=== PATIENT | female | born 1985 | race Caucasian/White ===

== ENCOUNTER → 2023-10-05 10:38 | Outpatient (REF) | payer OTHER, SELFPAY | LOC: HWRAD 10:38 | PROVIDERS: ATTENDING PHYSICIAN Family Medicine | DX: M25.511 Pain in right shoulder (principal) | CPT/HCPCS: 73030 ==

== ENCOUNTER 2024-10-25 20:36 | Emergency (ER) | payer OTHER, SELFPAY ==
[2024-10-25 20:38] VITALS: BP 145/105
[2024-10-25 21:08] VITALS: BP 148/98
[2024-10-25 21:09] VITALS: BMI 36.6
[2024-10-25] MEDS: TORADOL 15 MG IV (21:36)
[2024-10-25] MEDS: DECADRON 10 MG IV (21:36)
[2024-10-25 21:52] LABS: % Basophils 0.4 % (0-2); % Eosinophils 0.1 % (0-6); % Immature Granulocytes 0.4 % (0-0.5); % Lymphocytes 18.4 % (20.5-51.1); % Neutrophils 72.7 % (42.2-75.2); Absolute Monocytes 0.9 10^3/uL (0.1-0.6); Hematocrit 42.6 % (37.0-47.0); Hemoglobin 14.5 g/dL (12.0-16.0); Mean Corpuscular Volume 88.2 fL (81.0-99.0); Mean Platelet Volume 10.2 fL (7.4-10.4); Nucleated Red Blood Cells % 0 %; Platelet Count 221 10^3/uL (130-400); Red Blood Cell Count 4.83 10^6/uL (4.20-5.40); Red Cell Dist. Width 12.6 % (11.5-14.5)
[2024-10-25 22:00] VITALS: BP 138/95
[2024-10-25 22:04] LABS: HCG, Serum Qualitative Screen Negative
[2024-10-25 22:09] LABS: ALT (SGPT) 19 U/L (0-35); AST (SGOT) 21 U/L (14-36); Albumin 4.8 g/dl (3.5-5.0); Alkaline Phosphatase 77 U/L (38-126); Blood Urea Nitrogen 21 mg/dl (7-17); Calcium 9.8 mg/dl (8.4-10.2); Carbon Dioxide 25 mmol/L (22-30); Chloride 105 mmol/L (98-107); Estimated Creatinine Clearance 95 ml/min; Glucose 117 mg/dl (70-99); Potassium 3.8 mmol/L (3.5-5.1); Sodium 139 mmol/L (135-145); Total Bilirubin 0.8 mg/dl (0.2-1.3); Total Protein 8.4 g/dl (6.3-8.2); eGFR > 60.00
--- NOTE | 2024-10-25 22:45 | ED.GENMED ---
History of Present Illness
General
Chief Complaint: Cold/Flu/URI Symptoms
Time Seen by Provider: 10/25/24 21:07
History of Present Illness
History of Present Illness:
39-year-old female with no significant past medical history presents to the emergency department for evaluation of sore throat, myalgias, and nausea/vomiting for the past 2 days. Having difficulty swallowing. Feels that she is choking when she
tries to drink water. Has not taken any medications for symptom control. Feels as though her voice is becoming muffled
Past History
Past History
ED Past Medical History: Fibromyalgia and Other (RA); Negative Hypercholesterolemia or IDDM
ED Past Surgical History: Orthopedic
Social History
Tobacco: Non-smoker
Alcohol: None
Drug: None
Personal:
Living: with family
Employment: Employed
Family History
Family History: Diabetes and Hypertension
Review of Systems
Review of Systems
Allergies reviewed?: Yes
All Other Systems: ROS reviewed and negative except as documented in HPI and ROS
Phy Exam
Physical Exam
Physical Exam:
GEN: Well appearing, NAD, WDWN
HEENT: Oral mucosa moist, no scleral icterus. 2+ tonsillar hypertrophy with erythema and exudates bilaterally, uvula is midline, no evidence for peritonsillar abscess. Somewhat muffled phonation, no trismus
Cardiac: Regular rate
Lung: No respiratory distress, no tachypnea
MSK: No gross deformity or injuries
Skin: Good color, no pallor or jaundice, no rashes
Neuro: AO x3, moves all extremities freely
Psych: Calm, cooperative
Course
Orders/Labs/Results
Orders:
Orders
10/25/24 21:20
CT Neck With Iv Contrast Urgent
Comment:
Reason For Exam: dysphagia, odynophagia
Dexamethasone Sod Phosphate [Decadron] 10 mg IV NOW STA
Ketorolac [Toradol] 15 mg IV NOW STA
10/25/24 21:25
Test Result ONCE
10/25/24 21:33
Complete Blood Count/With Diff Urgent
Comprehensive Metabolic Panel Urgent
HCG, Serum Qualitative Screen Urgent
10/25/24 21:44
Rapid Strep Group A Urgent
JOSE E Source: Throat/Pharynx
Specimen Description:
Date Specimen was Collected: 10/25/24
Time Specimen was Collected: 21:35
10/25/24 22:49
Amoxicillin [Amoxil] 500 mg PO NOW STA
NSS 500mL Bolus over 30 minutes 0.9% Sodium Chloride 500 ml [Nss] 500 ml IV BOLUS
Abnormal Lab Results
10/25/24
21:33
WBC 11.0 H 10^3/uL
(4.8-10.8)
Absolute Neuts (auto) 8.0 H 10^3/uL
(1.4-6.5)
Absolute Monos (auto) 0.9 H 10^3/uL
(0.1-0.6)
Lymphocytes % 18.4 L %
(20.5-51.1)
BUN 21 H mg/dl
(7-17)
Glucose 117 H mg/dl
(70-99)
Total Protein 8.4 H g/dl
(6.3-8.2)
10/25/24 21:33
10/25/24 21:33
Vital Signs
Initial and Last Documented VS:
Initial Vital Signs
Temp Pulse Resp BP Pulse Ox
98.5 F 100 20 145/105 99
10/25/24 20:38 10/25/24 20:38 10/25/24 20:38 10/25/24 20:38 10/25/24 20:38
Last Documented Vital Signs
Temp Pulse Resp BP Pulse Ox
98.5 F 100 20 148/98 98
10/25/24 20:38 10/25/24 20:38 10/25/24 20:38 10/25/24 21:08 10/25/24 21:30
MDM/Problems Addressed
MDM/Problems Addressed:
Patient was sent for CT imaging given her muffled voice to rule out peritonsillar or retropharyngeal abscess, this was a reassuring study. Will treat for bacterial pharyngitis with amoxicillin, single dose of steroids given in the ED should be
satisfactory for inflammatory relief
*Critical Care Note
Total Time (30-74mins, 75-104mins- exclusive of procedures): Not Applicable
ED Attending Note
-
Portions of this chart may have been created with voice recognition software.� Occasional wrong word or��sound alike� substitutions may have occurred due to the inherent limitations of voice recognition software.
Discharge Plan
Departure
Patient Disposition: Home (Routine Discharge)
Date of Disposition: 10/25/24
Time of Disposition: 22:50
Patient with high blood pressure during this ER visit?: No
Discharge Problem:
Acute tonsillitis
Instructions: Sore throat in adults
Prescriptions:
New
amoxicillin 500 mg tablet
500 mg PO Q12H Qty: 19 0RF
No Action
vit-iron fum-folic ac 1 EACH tablet
1 tab PO DAILY
ibuprofen 600 MG tablet
600 mg PO TID PRN (Reason: pain) Qty: 20 0RF
diazepam 5 MG tablet
5 mg PO BIDPRN PRN (Reason: pain) Qty: 15 0RF
methylprednisolone [Medrol (Toni)] 4 MG tablets,dose pack
4 tab PO . DIRECT Qty: 1 0RF
Referrals:
Cornelia Jackson PA [Family Provider] -
Interventions
Interventions:
*Risk Screen - Suicide Last Done: 10/25/24 20:38
*General Assessment Last Done: 10/25/24 20:38
*Neglect/Abuse Screening Last Done: 10/25/24 20:38
*ED- Fall Risk Assessment Last Done: 10/25/24 21:09
*ED COVID-19 Vaccine History Last Done: 10/25/24 21:09
ED- Pulmonary Assessment Last Done: 10/25/24 21:09
Discharge Date and Time
Print Language: BAHRAINI
[2024-10-25 23:00] VITALS: BP 141/87
[2024-10-25] MEDS: AMOXIL 500 MG PO (23:02)
[2024-10-25] MEDS: NSS 500 IV (23:03)
[2024-10-26] VITALS: BP 125/84
== END 2024-10-26 00:12 | disposition home or self-care (01) ==
LOC: EMR 20:36
PROVIDERS: Physician Assistant; EMERGENCY PHYSICIAN Emergency Medicine; FAMILY PHYSICIAN Physician Assistant Medical
DX: J03.90 Acute tonsillitis, unspecified (principal); R11.2 Nausea with vomiting, unspecified; M79.7 Fibromyalgia
CPT/HCPCS: 96374; 96375; 99284; 70491; 80053; 84703; 85025; 87070; 87880; Q9967

== ENCOUNTER 2025-02-21 12:21 | Emergency (ER) | payer OTHER, SELFPAY ==
[2025-02-21 12:27] VITALS: BP 195/112
[2025-02-21 12:49] VITALS: BP 176/111
[2025-02-21] MEDS: LOW STRENGTH ASPIRIN 324 MG PO (12:58)
[2025-02-21] MEDS: NITROSTAT (SUBLINGUAL) 0.4 MG SL (12:59)
--- NOTE | 2025-02-21 12:59 | ED.GENMED ---
History of Present Illness
General
Chief Complaint: Chest Pain
Source: patient
Time Seen by Provider: 02/21/25 12:47
History of Present Illness
History of Present Illness:
39-year-old female presents the emergency room complaining of chest pain. Patient has been experiencing the chest discomfort intermittently for the past couple weeks. 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
working as a lead housekeeper. She describes her symptoms as a heaviness in the anterior of her chest. There is some tingling in her left arm. No nausea. No shortness of breath. Patient had a workup for coronary artery disease several years ago with
a stress test and echo. No evidence of coronary artery disease was found. Patient denies smoking. She was prescribed a medication by her primary care doctor recently for high blood pressure. She has not started to take it yet.
Past History
Past History
ED Past Medical History: Fibromyalgia and Other (RA); Negative Hypercholesterolemia or IDDM
ED Past Surgical History: Orthopedic
Social History
Tobacco: Non-smoker
Alcohol: None
Drug: None
Personal:
Living: with family
Employment: Employed
Family History
Family History: Diabetes and Hypertension
Phy Exam
Physical Exam
Physical Exam:
General: Awake, Alert, Oriented X3. No acute distress.
Vitals: Hypertensive
Head: Atraumatic
Eyes: Pupils equal, EOMI
Throat: Airway intact, no exudates
Neck: Trachea midline
Lungs: Clear and equal b/l
Heart: Regular rate, no murmurs
Abd: Soft, Nontender, No pulsatile mass
Neuro: Cranial nerves intact, muscle strength equal bilaterally, cerebellar exam normal
Skin: Warm, dry, no rash
Extremities: pulses equal b/l, no edema
Scores
Heart Score for Chest Pain Patients
STEMI patient?: No
History: Moderately Suspicious
ECG: Nonspecific Repolarization
Age: </= 45 years
Risk Factors: 1 or 2 Risk Factors
Troponin: </= Normal Limit
Heart Score for Chest Pain Patients: 3
Heart Score Risk: 2.5% MACE over next 6 weeks
Course
Orders/Labs/Results
Orders:
Orders
02/21/25 12:22
Electrocardiogram (*1) Urgent
Reason for Study: Chest Pain
EKG- Treatment ONCE
02/21/25 12:31
EKG [Electrocardiogram (*1)] Urgent
Reason for Study: Chest Pain
EKG- Treatment ONCE
02/21/25 12:54
Aspirin Chewable [Low Strength Aspirin] 324 mg PO NOW STA
Nitroglycerin Sublingual [Nitrostat (Sublingual)] 0.4 mg SL [id number] PRN
02/21/25 12:55
Cardiac Monitoring- Treatment ONCE
CR Chest - 2 Views Urgent
Comment:
Reason For Exam: chest pain
02/21/25 13:01
Complete Blood Count/With Diff Urgent
Comprehensive Metabolic Panel Urgent
Troponin I Urgent
02/21/25 14:51
Troponin I Urgent
02/21/25 14:52
EKG [Electrocardiogram (*1)] Urgent
Reason for Study: Chest Pain
EKG- Treatment ONCE
Abnormal Lab Results
02/21/25
13:01
RBC 4.02 L 10^6/uL
(4.20-5.40)
Hct 35.7 L %
(37.0-47.0)
Absolute Monos (auto) 0.7 H 10^3/uL
(0.1-0.6)
Glucose 120 H mg/dl
(70-99)
AST 38 H U/L
(14-36)
ALT 58 H U/L
(0-35)
02/21/25 13:01
02/21/25 13:01
Vital Signs
Initial and Last Documented VS:
Initial Vital Signs
Temp Pulse Resp BP Pulse Ox
98.2 F 84 16 195/112 100
02/21/25 12:27 02/21/25 12:27 02/21/25 12:27 02/21/25 12:27 02/21/25 12:27
Last Documented Vital Signs
Temp Pulse Resp BP Pulse Ox
98.2 F 79 19 141/87 98
02/21/25 12:27 02/21/25 15:30 02/21/25 15:30 02/21/25 15:00 02/21/25 15:30
MDM/Problems Addressed
Differential Diagnosis Includes:
ACS, chest wall pain, pneumothorax, GERD, uncontrolled hypertension
MDM/Problems Addressed:
Patient presents with vague chest pain has been intermittent for 2 weeks. No acute ischemic changes in her EKG. Troponin is normal x 2. Chest x-ray is no acute disease. Patient was given a nitro early on in her presentation. This did help her
feel better and also lowered her blood pressure into the 140s. Patient's primary care doctor evidently sent a prescription for antihypertensive just yesterday or today. Stressed the need to get that filled and start the medication. Patient also
placed on the chest pain hotline.
*Radiology
Radiology exam reviewed: preliminary read by ED provider (No acute disease on my review of the patient's chest x-ray)
*Pulse Oximetry
SaO2: 100
Oxygen Mode of Delivery: Room air
Patient hypoxic: no
*EKG
Interpreted by ED Provider?: Yes
Interpretation: abnormal
Comparison EKG: no changes
Heart Rate: 77
Rate: normal
Rhythm: sinus
[place]: normal axis
Interval: normal interval
QRS Pattern: normal QRS
Ischemia: non-specific ST changes
*Lead Person Interpretation
Rate: normal
Interpretation: normal
Heart Rate: 77
Rhythm: sinus
*Critical Care Note
Total Time (30-74mins, 75-104mins- exclusive of procedures): Not Applicable
Patient Management
Social determinants of health affecting care: Strong social support
ED Attending Note
-
Portions of this chart may have been created with voice recognition software.� Occasional wrong word or��sound alike� substitutions may have occurred due to the inherent limitations of voice recognition software.
Discharge Plan
Departure
Patient Disposition: Home (Routine Discharge)
Date of Disposition: 02/21/25
Time of Disposition: 16:30
Patient with high blood pressure during this ER visit?: Yes
Condition: Good
Discharge Problem:
Chest pain
Instructions: Chest Pain DCA Follow Up, BLOOD PRESSURE
Prescriptions:
No Action
vit-iron fum-folic ac 1 EACH tablet
1 tab PO DAILY
ibuprofen 600 MG tablet
600 mg PO TID PRN (Reason: pain) Qty: 20 0RF
diazepam 5 MG tablet
5 mg PO BIDPRN PRN (Reason: pain) Qty: 15 0RF
methylprednisolone [Medrol (Toni)] 4 MG tablets,dose pack
4 tab PO . DIRECT Qty: 1 0RF
amoxicillin 500 mg tablet
500 mg PO Q12H Qty: 19 0RF
Referrals:
[facility], [Other]
Cornelia Jackson PA [Family Provider, Family Practice]
Interventions
Interventions:
*Risk Screen - Suicide Last Done: 02/21/25 12:27
*General Assessment Last Done: 02/21/25 12:27
*Neglect/Abuse Screening Last Done: 02/21/25 12:27
*ED- Fall Risk Assessment Last Done: 02/21/25 12:27
*ED COVID-19 Vaccine History Last Done: 02/21/25 12:27
*Nursing Disposition Last Done: 02/21/25 16:46
ED- Cardiac Assessment Last Done: 02/21/25 16:46
Discharge Date and Time
Discharge Date/Time: 02/21/25 16:46
Print Language: ROMANSH
[2025-02-21 13:12] LABS: Hematocrit 35.7 % (37.0-47.0); Hemoglobin 12.3 g/dL (12.0-16.0); Mean Corp Hgb Conc. 34.5 g/dL (33.0-37.0); Mean Corpuscular Volume 88.8 fL (81.0-99.0); Nucleated Red Blood Cells % 0 %; Platelet Count 220 10^3/uL (130-400); Red Cell Dist. Width 12.2 % (11.5-14.5)
[2025-02-21 13:13] VITALS: BP 149/97
[2025-02-21 13:34] LABS: ALT (SGPT) 58 U/L (0-35); AST (SGOT) 38 U/L (14-36); Albumin 4.3 g/dl (3.5-5.0); Alkaline Phosphatase 58 U/L (38-126); Blood Urea Nitrogen 17 mg/dl (7-17); Calcium 9.7 mg/dl (8.4-10.2); Carbon Dioxide 27 mmol/L (22-30); Chloride 103 mmol/L (98-107); Glucose 120 mg/dl (70-99); Potassium 3.5 mmol/L (3.5-5.1); Sodium 137 mmol/L (135-145); Total Protein 7.4 g/dl (6.3-8.2); eGFR > 60.00
[2025-02-21 13:38] LABS: Troponin I < 0.012 ng/ml
[2025-02-21 14:18] VITALS: BP 135/88
[2025-02-21 15:00] VITALS: BP 141/87
[2025-02-21 15:36] LABS: Troponin I < 0.012 ng/ml
== END 2025-02-21 16:46 | disposition home or self-care (01) ==
LOC: EMR 12:21
PROVIDERS: EMERGENCY PHYSICIAN Emergency Medicine; FAMILY PHYSICIAN Physician Assistant Medical
DX: R07.9 Chest pain, unspecified (principal); I10 Essential (primary) hypertension; M79.7 Fibromyalgia; M06.9 Rheumatoid arthritis, unspecified; Z82.49 Family history of ischemic heart disease and other diseases of the circulatory system
CPT/HCPCS: 99285; 71046; 80053; 84484; 85025; 93005

== ENCOUNTER → 2025-03-20 08:15 | Outpatient (REF) | payer OTHER, SELFPAY | LOC: HWRCS 08:15 | PROVIDERS: ATTENDING PHYSICIAN Internal Medicine Cardiovascular Disease; FAMILY PHYSICIAN Physician Assistant Medical | DX: R07.89 Other chest pain (principal) | CPT/HCPCS: 93306 ==

== ENCOUNTER → 2025-03-27 14:10 | Outpatient (REF) | payer OTHER, SELFPAY | LOC: RCS 14:10 | PROVIDERS: ATTENDING PHYSICIAN Internal Medicine Cardiovascular Disease; FAMILY PHYSICIAN Physician Assistant Medical | DX: R07.89 Other chest pain (principal) | CPT/HCPCS: 93017; 93350; Q9957 ==

== ENCOUNTER → 2025-05-28 | Outpatient (REF) | payer OTHER, SELFPAY | LOC: DHSLP | PROVIDERS: ATTENDING PHYSICIAN Internal Medicine Critical Care Medicine; FAMILY PHYSICIAN Physician Assistant Medical | DX: G47.30 Sleep apnea, unspecified (principal); R06.83 Snoring | CPT/HCPCS: 95800 ==